=== PATIENT | female | born 1985 | race Caucasian/White ===

== ENCOUNTER 2021-05-15 18:22 | Emergency (ER) | payer BC, SELFPAY ==
--- NOTE | 2021-05-15 18:24 | ED.GENADULT ---
HPI - General Adult General Chief complaint: Upper Respiratory Infection Stated complaint: Cough/Congestion/Sore Throat Time Seen by Provider: 05/15/21 18:24 Source: patient Mode of arrival: ambulatory Limitations: no limitations History of Present Illness HPI narrative: 28-year-old female patient presents to the [facility] with complaints of cough, congestion, sore throat for the past 4 days. Denies fever but states she has been feeling hot lately. Denies being vaccinated against Covid or influenza. Patient states she is been taking [id number] Mucinex for her symptoms. Denies any history of smoking. Related Data Allergies Allergy/AdvReac Type Severity Reaction Status Date / Time No Known Allergies Allergy Verified 05/15/21 18:45 Review of Systems Review of Systems: CONSTITUTIONAL: Positive subjective fever, denies chills, or sweats. EYES: Denies visual changes, redness, or discharge. ENT: Positive rhinorrhea, congestion, positive sore throat, denies otalgia. CARDIOVASCULAR: Denies chest pain, palpitations, or edema. RESPIRATORY: Positive cough, denies dyspnea. GASTROINTESTINAL: Denies abdominal pain, nausea, vomiting, or diarrhea. GENITOURINARY: Denies dysuria or hematuria. SKIN: Denies rash or itching. MUSCULOSKELETAL: Denies back pain, joint pain, or myalgia. NEUROLOGIC: Denies headache, numbness, or weakness. PSYCHIATRIC: Denies anxiety or depression. [facility] Past Medical History Medical History (Updated 05/15/21 @ 19:15 by DUSTIN Mena) No significant past medical history Comments At the time of my signature I agree with nursing past medical history, surgical, social, and family history. There is no relevant family history pertinent to the presenting complaint. Exam Narrative: GENERAL: ill-appearing, well-nourished, and in no acute distress. HEAD: Normocephalic, atraumatic. EYES: PERRLA and EOMI. ENT: With erythema and edema noted bilaterally, no rhinorrhea or epistaxis. Mucous membranes moist. Bilateral TMs are clear no erythema or foreign bodies in the canal. Posterior pharynx with no erythema, tonsillar edema, exudates or lesions present. NECK: Supple. No lymphadenopathy CHEST: Clear to auscultation. No respiratory distress. HEART: Regular rate and rhythm. No murmur heard. Normal peripheral pulses. ABDOMEN: Soft, nontender, nondistended, normal active bowel sounds. EXTREMITIES: Normal range of motion. No edema. SKIN: Warm, dry, no rash. NEURO: No focal deficits. Alert and oriented x3. Course Reevaluation(s) Reevaluation #1: Reevaluated patient after her Covid, strep and influenza resulted. Notified her that everything is negative we will go ahead and do a PCR Covid on her and send it to the lab. Discussed with patient I will treat her symptomatically today with Tessalon Perles to help with the cough, daily antihistamine and a daily steroid to help with any inflammation. Patient verbalized understanding denies any other questions or concerns at this time. Date: 05/15/21 Time: 19:18 Vital Signs Vital signs: Vital Signs Temperature 37.3 C 05/15/21 18:32 Pulse Rate 105 H 05/15/21 18:32 Respiratory Rate 20 05/15/21 18:32 Blood Pressure 141/85 H 05/15/21 18:32 Pulse Oximetry 100 05/15/21 18:32 Temperature 37.3 C 05/15/21 18:46 Pulse Rate 105 H 05/15/21 18:46 Respiratory Rate 20 05/15/21 18:46 Blood Pressure 141/85 H 05/15/21 18:46 Pulse Oximetry 100 05/15/21 18:46 Vital signs reviewed The patient has been informed that they may have pre-hypertension or Hypertension based on a BP reading in the department. I recommend that the patient call the primary care provider listed on their discharge instructions or a physician of their choice this week to arrange follow up for further evaluation of possible pre-hypertension or Hypertension Medical Decision Making Differential Diagnosis Differential Diagnosis: Differential diagnosis: Allergic rhinitis, chronic sinusiti
[2021-05-15 18:32] VITALS: BP 141/85; PULSE 105; RESP 20; TEMP 37.3; O2SAT 100
[2021-05-15 18:46] VITALS: BP 141/85; PULSE 105; RESP 20; TEMP 37.3; O2SAT 100
[2021-05-18 19:53] LABS: SARS-CoV-2 RNA PCR Negative
== END 2021-05-15 19:45 | disposition home or self-care (01) ==
PROVIDERS: Emergency Provider Nurse Practitioner Family
DX: J06.9 Acute upper respiratory infection, unspecified (principal); Z20.822 Contact with and (suspected) exposure to COVID-19
CPT/HCPCS: 87081; 87426; 87804; 87880; 99213; C9803; G0463; U0003; U0005

== ENCOUNTER 2021-05-31 11:06 | Emergency (ER) | payer BC, SELFPAY ==
--- NOTE | ~2021-05-31 | XR_ITS ---
XR chest 2V DATE: 05/31/2021 12:02 INDICATION: Cough. Covid diagnosis a days ago. TECHNIQUE: PA and lateral views COMPARISON: None FINDINGS: Normal heart size. There is patchy consolidation and some atelectasis of the left upper lobe. Differential diagnosis inc ludes pneumonia versus less likely postobstructive left upper lobe atelectasis and consolidation seco ndary to an obstructing endobronchial lesion. Clinical correlation is advised, with follow-up chest r adiographs or CT thorax for further evaluation as clinically appropriate. The remaining lung saravia are clear. There is minimal if any pleural effusion. No pneumothorax. Normal heart size. No hilar or mediastinal enlargement is evident. Surgical clips, right upper quadrant, consistent with cholecystectomy. Included skeletal structures are unremarkable with the exception of moderately prominent degenerative disc disease in the upper lumbar spine. IMPRESSION: Left upper lobe atelectasis and patchy consolidation; differential diagnosis includes lef t upper lobe pneumonia versus less likely postobstructive atelectasis/consolidation secondary to an o bstructing endobronchial lesion Reviewed, dictated and finalized at location A. NSED CERTIFIED ORTHOTIST IMPRESSION: Left upper lobe atelectasis and patchy consolidation; differential diagnosis includes left upper lobe pneumonia versus less likely postobstructive atelectasis/consolidation secondary to an obstructing endobronchial lesion
--- NOTE | 2021-05-31 11:12 | ED.URI ---
HPI - URI/Sore Throat General Chief Complaint: Upper Respiratory Infection Stated Complaint: cough Time Seen by Provider: 05/31/21 11:12 Source: patient and RN notes reviewed History of Present Illness HPI Narrative: Patient is a 36-year-old female who presents the urgent care with complaints of post Covid cough. Patient states that it started last Sunday and has been very consistent. Patient states that she has had intermittent fevers without nausea, vomiting or chest pain. Patient states that she was seen a week prior to being Covid positive and diagnosed with bronchitis. Patient has been taking the Tessalon Perles without any improvement. No other acute complaints. No acute distress noted. Patient read the plan of care. Some parts of this dictation were generated by voice recognition software and may contain typographical and/or grammatical inaccuracies. Related Data Allergies Allergy/AdvReac Type Severity Reaction Status Date / Time No Known Allergies Allergy Verified 05/31/21 11:24 Review of Systems Review of Systems: CONSTITUTIONAL: Reports of intermittent fevers EYES: Denies visual changes, redness, or discharge. ENT: Reports of postnasal drainage and mild congestion CARDIOVASCULAR: Denies chest pain, palpitations, or edema. RESPIRATORY: Reports of post Covid cough without dyspnea GASTROINTESTINAL: Denies abdominal pain, nausea, vomiting, or diarrhea. GENITOURINARY: Denies dysuria or hematuria. SKIN: Denies rash or itching. MUSCULOSKELETAL: Denies back pain, joint pain, or myalgia. NEUROLOGIC: Denies headache, numbness, or weakness. All other systems reviewed are negative, except as documented in HPI. [facility] Past Medical History Medical History (Updated 05/31/21 @ 12:16 by DUSTIN Whitten) No significant past medical history Comments At the time of my signature, I reviewed and agree with the nursing past medical, surgical, social, and family history. There is no relevant family history pertinent to the patient complaint. Exam Narrative: GENERAL: This is a well-nourished, well-developed patient, in no apparent distress. HEAD: normocephalic, atraumatic. EYES: PERRL. Sclera clear/white. Vision is grossly intact. EARS: External ears normal, auditory canals clear and without drainage, TMs normal without perforation. Hearing grossly intact. NOSE: External nose normal with no obvious nasal discharge, nares without redness, no rhinorrhea. THROAT: Mucous membranes moist, posterior pharynx clear. Mild erythema noted posterior oropharynx with moderate postnasal drainage NECK: Neck supple CARDIOVASCULAR: Regular rate and rhythm without murmurs, gallops, or rubs. RESPIRATORY: Dry cough on exam. Clear to auscultation. Breath sounds equal bilaterally. No wheezes, rales, or rhonchi. SKIN: warm, intact with no suspicious lesions or rash, good texture and turgor. NEURO: awake, alert, and oriented to person, place and time. There were no obvious focal neurologic abnormalities. EXTREMITIES: No clubbing, cyanosis, or edema. Course Course Level of Care: Express Care Visit Vital Signs Vital signs: Vital Signs Temperature 100.4 F H 05/31/21 11:15 Pulse Rate 115 H 05/31/21 11:15 Respiratory Rate 18 05/31/21 11:15 Blood Pressure 142/90 H 05/31/21 11:15 Pulse Oximetry 96 05/31/21 11:15 Temperature 100.4 F H 05/31/21 11:15 Pulse Rate 115 H 05/31/21 11:15 Respiratory Rate 18 05/31/21 11:15 Blood Pressure 142/90 H 05/31/21 11:15 Pulse Oximetry 96 05/31/21 11:15 Reviewed-patient is informed that they may have pre-hypertension or hypertension based on a blood pressure reading in the department. I recommend the patient call the primary care provider listed on their discharge instructions or a physician of their choice this week to arrange follow-up for further evaluation of possible pre-hypertension or hypertension. MDM - URI/Sore Throat MDM Narrative Medical decision making narrative: Reviewe
[2021-05-31 11:15] VITALS: BP 142/90; PULSE 115; RESP 18; TEMP 38; O2SAT 96
== END 2021-05-31 12:20 | disposition home or self-care (01) ==
PROVIDERS: Emergency Provider Nurse Practitioner Family
DX: U07.1 COVID-19 (principal); J12.82 Pneumonia due to coronavirus disease 2019
CPT/HCPCS: 71046; 99213; G0463

== ENCOUNTER 2022-09-26 08:30 | Outpatient (CLI) | payer BC, SELFPAY ==
--- NOTE | 2022-09-26 11:00 | NEURO_ITS ---
Impression: # Complains of nocturnal paresthesia and pain in right hand. # Mild right and evolving left Carpal Tunnel Syndrome. # No ulnar neuropathy. # Normal needle/EMG exam. Nerve Conduction Studies Anti Sensory Summary Table Stim Site NR Peak (ms) P-T Amp (?V) Site1 Site2 Delta-P (ms) Dist (cm) Kiel (m/s) Left Median Anti Sensory (2-3nd Digit) Wrist 3.1 94.7 Wrist 2-3nd Digit 3.1 14.0 45 Wrist 3.2 81.8 Wrist 2-3nd Digit 3.1 14.0 45 Right Median Anti Sensory (2-3nd Digit) Wrist 3.8 72.8 Wrist 2-3nd Digit 3.8 14.0 37 Wrist 4.2 48.9 Wrist 2-3nd Digit 3.8 14.0 37 Left Radial Anti Sensory (Base 1st Digit) Wrist 2.0 33.9 Wrist Base 1st Digit 2.0 0.0 Right Radial Anti Sensory (Base 1st Digit) Wrist 1.8 35.3 Wrist Base 1st Digit 1.8 0.0 Left Ulnar Anti Sensory (5th Digit) Wrist 2.3 64.3 Wrist 5th Digit 2.3 14.0 61 Right Ulnar Anti Sensory (5th Digit) Wrist 2.3 70.2 Wrist 5th Digit 2.3 14.0 61 Motor Summary Table Stim Site NR Onset (ms) O-P Amp (mV) Site1 Site2 Delta-0 (ms) Dist (cm) Kiel (m/s) Left Median Motor (Abd Poll Brev) Wrist 3.4 3.6 Elbow Wrist 4.4 26.0 59 Elbow 7.8 3.1 Right Median Motor (Abd Poll Brev) Wrist 3.5 2.7 Elbow Wrist 4.2 25.0 60 Elbow 7.7 2.4 Left Ulnar Motor (Abd Dig Minimi) Wrist 2.4 7.1 A Elbow Wrist 4.4 27.0 61 A Elbow 6.8 6.4 Right Ulnar Motor (Abd Dig Minimi) Wrist 2.1 8.6 A Elbow Wrist 4.6 26.0 57 A Elbow 6.7 8.2 F Wave Studies NR F-Lat (ms) L-R F-Lat (ms) Left Median (Mrkrs) (Abd Poll Brev) 26.63 0.64 Right Median (Mrkrs) (Abd Poll Brev) 27.27 0.64 Left Ulnar (Mrkrs) (Abd Dig Min) 25.87 0.58 Right Ulnar (Mrkrs) (Abd Dig Min) 26.44 0.58 EMG Side Muscle Nerve Root Ins Act Fibs Amp Dur Recrt Comment Right 1stDorInt Ulnar C8-T1 Nml Nml Nml Nml Nml Right Ext Indicis Radial (Post Int) C7-8 Nml Nml Nml Nml Nml Right Ext Digitorum Radial (Post Int) C7-8 Nml Nml Nml Nml Nml Right BrachioRad Radial C5-6 Nml Nml Nml Nml Nml Right PronatorTeres Median C6-7 Nml Nml Nml Nml Nml Right Abd Poll Brev Median C8-T1 Nml Nml Nml Nml Nml Left 1stDorInt Ulnar C8-T1 Nml Nml Nml Nml Nml Left Ext Indicis Radial (Post Int) C7-8 Nml Nml Nml Nml Nml Left Ext Digitorum Radial (Post Int) C7-8 Nml Nml Nml Nml Nml Left BrachioRad Radial C5-6 Nml Nml Nml Nml Nml Left PronatorTeres Median C6-7 Nml Nml Nml Nml Nml Left Abd Poll Brev Median C8-T1 Nml Nml Nml Nml Nml Right ABD Dig Min Ulnar C8-T1 Nml Nml Nml Nml Nml Left ABD Dig Min Ulnar C8-T1 Nml Nml Nml Nml Nml MTDD
== END 2022-09-26 08:31 | disposition home or self-care (01) ==
LOC: ANHNEURO 08:31
PROVIDERS: PCP Family Medicine; Visit Provider Nurse Practitioner Family
DX: R20.0 Anesthesia of skin (principal); G56.03 Carpal tunnel syndrome, bilateral upper limbs
CPT/HCPCS: 95886; 95911

== ENCOUNTER 2023-12-31 12:52 | Outpatient (CLI) | payer BC, SELFPAY ==
--- NOTE | ~2023-12-31 | XR_ITS ---
XR wrist LT min 3V Ordering provider: Aruna Cm NP History: . Pain in left wrist, swelling x 3 wks hx carpal tunnel nki . Comparison: None. FINDINGS: BONES: No acute fracture or dislocation. No definite scaphoid fracture. Lucency seen in the scaphoid in the oblique view. Follow-up exam in 10 days is advised. JOINT SPACES: Well maintained. SOFT TISSUES: Normal. IMPRESSION: No definite acute osseous abnormality left wrist. Lucency seen in the scaphoid. A repeat exam in10 da ys is advised. Reviewed, dictated and finalized at location A. IMPRESSION: No definite acute osseous abnormality left wrist. Lucency seen in the scaphoid. A repeat exam in10 days is advised.
== END 2023-12-31 12:53 | disposition home or self-care (01) ==
PROVIDERS: PCP Family Medicine
DX: M25.532 Pain in left wrist (principal)
CPT/HCPCS: 73110

== ENCOUNTER 2024-01-10 13:53 | Outpatient (CLI) | payer OTHER, BC, SELFPAY ==
--- NOTE | ~2024-01-10 | XR_ITS ---
XR wrist LT w scaphoid Ordering provider: Aruna Cm NP History: . RADIATING ULNAR PAIN AFTER INJURY, PT HAS CARPAL TUNNEL . Comparison: December 31, 2023 FINDINGS: BONES: No acute fracture or dislocation. No definite scaphoid fracture. JOINT SPACES: Well maintained. SOFT TISSUES: Normal. IMPRESSION: No definite acute osseous abnormality left wrist. If patient continues to have symptoms a repeat exam is advised in 2 weeks. Reviewed, dictated and finalized at location A.
== END 2024-01-10 13:54 | disposition home or self-care (01) ==
PROVIDERS: PCP Family Medicine
DX: M25.532 Pain in left wrist (principal)
CPT/HCPCS: 73110

== ENCOUNTER 2025-03-12 16:15 | Outpatient (CLI) | payer BC, SELFPAY ==
--- NOTE | ~2025-03-12 | XR_ITS ---
EXAMINATION: XR abdomen/kub 1V, 03/12/2025 16:30 CDT HISTORY: R10.32 - Left lower quadrant pain COMPARISON: No comparisons available. Technique: 3 view. Findings: Bowel gas pattern unremarkable. No obstruction. No free air. No abnormal calcifications No acute osseous abnormality. Impression: 1. No acute abnormality. Reviewed, dictated and finalized at location P. Impression: 1. No acute abnormality.
== END 2025-03-12 16:16 | disposition home or self-care (01) ==
LOC: MICIMG 16:18
PROVIDERS: PCP Family Medicine; Visit Provider Nurse Practitioner Family
DX: R10.32 Left lower quadrant pain (principal); Z87.442 Personal history of urinary calculi
CPT/HCPCS: 74018

== ENCOUNTER 2025-03-20 08:54 | Outpatient (CLI) | payer BC, SELFPAY ==
--- NOTE | ~2025-03-20 | CT_ITS ---
CT abdomen pelvis wo con INDICATION:Left lower quadrant pain, hx renal calculi . COMPARISON: None. TECHNIQUE: Axial 2.5 mm images of the abdomen were obtained without IV or oral contrast. Diagnostic sensitivity is limited due to lack of IV contrast. FINDINGS: The lung bases are clear. The liver parenchyma is unremarkable. No intrahepatic mass or ductal dilatation is evident. The patient has had a cholecystectomy. The pancreas and spleen are normal in appearance. The adrenal glands are symmetric in size. The kidneys are unremarkable. No intrarenal stones are noted. There is no hydronephrosis. Evaluation of the stomach and bowel loops are limited due to lack of oral contrast. The appendix is normal in appearance. The bladder and rectum are normal. The uterus and both adnexa are unremarkable. No free intraperitoneal fluid or air is evident. There is no significant retroperitoneal lymphadenopathy. The aorta, visceral vessels and renal arteries demonstrate normal caliber. The lower thoracic and lumbar vertebrae are in normal alignment. IMPRESSION: No acute abnormality is noted in the abdomen and pelvis. All CT scans at this facility are performed using low dose modulation techniques as appropriate to perform exam including the following: automated exposure control; use of iterative reconstruction technique; adjustment of the mA and/or kV according to patient size (this includes techniques or standardized protocols for targeted exams where dose is matched to indication/reason for exam). Reviewed, dictated and finalized at location S. IMPRESSION: No acute abnormality is noted in the abdomen and pelvis. All CT scans at this facility are performed using low dose modulation techniqu es as appropriate to perform exam including the following: automated exposure c ontrol; use of iterative reconstruction technique; adjustment of the mA and/or kV according to patient size (this includes techniques or standardized protocol s for targeted exams where dose is matched to indication/reason for exam).
== END 2025-03-20 08:55 | disposition home or self-care (01) ==
LOC: MICIMG 08:55
PROVIDERS: PCP Family Medicine; Visit Provider Nurse Practitioner Family
DX: R10.32 Left lower quadrant pain (principal); Z87.442 Personal history of urinary calculi
CPT/HCPCS: 74176